=== PATIENT | male | born 1950 | race Caucasian/White ===

== ENCOUNTER 2022-03-17 21:50 | Emergency (ER) | payer MEDICARE, BC ==
[~2022-03-17] VITALS: Ht 175.3 cm; Wt 71.7 kg
[~2022-03-17 21:50] MED LIST: BUPROPION PO; CLONAZEPAM PO; FINASTERIDE PO; GABAPENTIN PO; TAMSULOSIN PO
--- NOTE | 2022-03-17 22:14 | NUR ---
pt in rooom 1b c/o c/p. Dr. Sarmiento at bedside for MSE.
[2022-03-17 22:16] LABS: HEMATOCRIT 36.3 % (36.7-47.1); MEAN CORPUSCULAR HEMOGLOBIN 31.8 uug (23.8-33.4); MEAN CORPUSCULAR VOLUME 95.3 fL (73.0-96.2); PLATELET COUNT (AUTO) 239 K/uL (152-348)
[2022-03-17] MEDS ORDERED: FINA5TAB11 PO (22:17)
[2022-03-17] MEDS ORDERED: TAMS-3 PO (22:17)
[2022-03-17] MEDS ORDERED: BUPR-53 PO (22:17)
[2022-03-17] MEDS ORDERED: TADA5TAB2 PO (22:17)
--- NOTE | 2022-03-17 22:28 | NUR ---
pt currently denies c/p. he expresses to me that he does not want to be admitted to the hospital. I explained to him lets wait for all test results and he can talk with the doctor.
[2022-03-17 22:38] LABS: ALANINE AMINOTRANSFERASE 20 U/L (16-63); ALKALINE PHOSPHATASE 59 U/L (50-136); ASPARTATE AMINOTRANSFERASE 12 U/L (15-37); BILIRUBIN,DIRECT 0.1 mg/dL (0.0-0.2); BILIRUBIN,TOTAL 0.3 mg/dL (0.2-1.0); CARBON DIOXIDE 28 mmol/L (21-32); CHLORIDE 103 mmol/L (98-107); GLUCOSE 96 mg/dL (74-106); POTASSIUM 4.1 mmol/L (3.5-5.1); TOTAL PROTEIN, SERUM 6.8 g/dL (6.4-8.2); UREA NITROGEN, BLOOD 20 mg/dL (7-18)
--- NOTE | 2022-03-17 22:58 | NUR ---
pt ambulated to the bathroom with steady gait, denies c/p or sob.
--- NOTE | 2022-03-18 00:08 | NUR ---
Patient does not wish to proceed with medical care recommended by Dr. Sarmiento. Patient given information related to possible complications, up to and including , which could occur as a result of leaving the hospital at this time. Patient verbalizes understanding of risks involved due to leaving against medical advice. Patient has signed AMA form.
== END 2022-03-18 00:09 | disposition left against medical advice (07) ==
LOC: ER 21:52
DX: R07.9 Chest pain, unspecified (principal); N40.0 Benign prostatic hyperplasia without lower urinary tract symptoms; M19.90 Unspecified osteoarthritis, unspecified site; R00.1 Bradycardia, unspecified; D64.9 Anemia, unspecified; Z20.822 Contact with and (suspected) exposure to COVID-19; Z79.899 Other long term (current) drug therapy; F32.A Depression, unspecified
CPT/HCPCS: 36415; 71045; 84484; 85025; 93005; A4663